=== PATIENT | male | born 1975 | race Caucasian/White ===

== ENCOUNTER 2020-11-15 10:26 | Outpatient (RCR) | payer OTHER, SELFPAY | END 2021-01-28 23:59 | LOC: IMMUN 10:26 | PROVIDERS: Visit Provider Family Medicine | DX: Z23 Encounter for immunization (principal) | CPT/HCPCS: 0001A; 0002A; 91300 ==

== ENCOUNTER → 2021-04-08 10:13 | Outpatient (CLI) | payer OTHER, SELFPAY ==
[2021-04-08 08:29] VITALS: BMI 34.8
[2021-04-08 12:09] LABS: Absolute Lymphocyte Count 2.12 X10^3/uL (0.83-4.51); Absolute Neutrophil Count 3.6 X10^3/uL (2.0-7.7); Basophil# 0.04 X10^3/uL; Basophil% 0.6 % (0-1); Eosinophil# 0.25 X10^3/uL; Eosinophils% 3.8 % (0-5); Hematocrit 45.6 % (40-54); Hemoglobin 15.3 g/dL (13.0-16.5); Lymphocyte # 2.12 X10^3/ul (0.83-4.51); Lymphocyte % 32.5 % (19-41); Mean Corp Hgb Conc 33.6 g/dL (32-36); Mean Corpuscular Hgb 28.9 pg (27.0-32.0); Mean Platelet Vol. 12.1 fl (6.2-12.0); Monocyte# 0.52 X10^3/uL; NRBC Flagged by Analyzer 0 % (0-5); Neutrophil # 3.57 X10^3/uL (2.7-7.7); Neutrophil % 54.8 % (47-70); POSITIVE COUNT YES; RBC Distribution Width CV 12.7 % (11.6-14.6); RBC Distribution Width SD 39.7 fl (35.1-43.9); White Blood Count 6.5 K/mm3 (4.4-11.0)
[2021-04-08 12:13] LABS: Vitamin D,25 Hydroxy 26.7 ng/mL
[2021-04-08 12:17] LABS: Hemoglobin A1c 5.3 % (3.8-5.6)
[2021-04-08 12:26] LABS: ALB/GLOB Ratio 1.1 RATIO (0.9-2.4); AST(SGOT) 25 U/L (15-37); Alanine Aminotransfer ALT/SGPT 62 U/L (16-61); Albumin, Serum 3.9 g/dL (3.2-5.0); Alkaline Phosphatase 73 U/L (45-117); Anion Gap 5 (5-15); BUN 10 mg/dL (7-18); BUN/Creat Ratio 10.4 RATIO (10-20); Calcium,Total 8.4 mg/dL (8.5-10.1); Chloride 109 mmol/L (98-107); Cholesterol 204 mg/dL (200); Creatinine, Serum 0.96 mg/dL (0.70-1.30); EST Glomerular Filtration Rate 90 mL/min (>60); Est Glom Filt Rate - Afr Amer 109 mL/min (>60); Globulin 3.4 g/dL (2.2-4.2); Glucose 89 mg/dL (74-106); High Density Lipoprotein 26 mg/dL; PSA,Total - Annual Screen 0.41 ng/mL (0.00-4.00); Potassium 4.1 mmol/L (3.5-5.1); Protein, Total 7.3 g/dL (6.4-8.2); Sodium Level 140 mmol/L (136-145); Thyroid Stim Hormone (TSH) 3.95 uIU/mL (0.358-3.74); Triglycerides 353 mg/dL; Very Low Density Lipoprotein 71 mg/dL (5-40)
[2021-04-08 12:53] LABS: Differential Indicated SCAN CRITERIA MET
[2021-04-08 12:54] LABS: Platelet Estimate ADEQUATE (ADEQ)
[2021-04-08 13:43] LABS: Free T3 3.1 pg/mL (2.18-3.98); T4 Free Direct 0.96 ng/dL (0.76-1.46)
[2021-04-09 16:08] LABS: Thyroid Peroxidase AB 450 IU/mL (0-34)
[2021-04-09 20:04] LABS: Thyroglobulin Antibody 4.6 IU/mL (0.0-0.9)
== END ==
PROVIDERS: PCP Internal Medicine; Referring Provider Internal Medicine; Visit Provider Internal Medicine
DX: R79.89 Other specified abnormal findings of blood chemistry (principal); Z12.5 Encounter for screening for malignant neoplasm of prostate; Z13.1 Encounter for screening for diabetes mellitus; Z13.220 Encounter for screening for lipoid disorders
CPT/HCPCS: 36415; 80053; 80061; 82306; 83036; 84153; 84439; 84443; 84481; 85025; 86376; 86800; G0103

== ENCOUNTER → 2021-04-08 13:26 | Outpatient (CLI) | payer OTHER, SELFPAY ==
[2021-04-08 08:29] VITALS: BMI 34.8
--- NOTE | 2021-04-08 13:28 | VDLE_ITS ---
Reason For Study: Swelling Procedure LEFT This is a venous duplex using B-mode, color GSV is normal. flow and spectral Doppler. CFV is compressible, spontaneous, phasic, Exam performed in department. competent, and demonstrates normal A preliminary report was called and/or faxed augmentation. to Tamie. FV is compressible, spontaneous, phasic, competent and demonstrates normal augmentation. POP V is compressible, spontaneous, phasic, competent and demonstrates normal augmentation. T/P Trunk is compressible. PTV is compressible. LT PerV is compressible. VL/Venous Duplex US, Unilateral Interpretation Summary There is no evidence of left lower extremity deep vein thrombosis. Left great s aphenous vein appears patent and compressible segmentally. Ordering Physician: Serenity Willett Referring Physician: Serenity Willett Performed By: Daina Rai RVT
== END ==
PROVIDERS: PCP Internal Medicine; Referring Provider Internal Medicine; Visit Provider Internal Medicine
DX: M79.89 Other specified soft tissue disorders (principal)
CPT/HCPCS: 93971

== ENCOUNTER → 2021-04-16 | Outpatient (CLI) | payer OTHER, SELFPAY | END | disposition home or self-care (01) | LOC: LABSPEC 15:21 | PROVIDERS: PCP Internal Medicine; Referring Provider Internal Medicine; Visit Provider Internal Medicine | DX: R53.83 Other fatigue (principal); Z20.822 Contact with and (suspected) exposure to COVID-19 | CPT/HCPCS: 87635; U0005; U0003 ==

== ENCOUNTER 2021-10-22 09:13 | Outpatient (CLI) | payer OTHER, SELFPAY ==
[2021-10-22 11:15] LABS: Cholesterol 216 mg/dL (200); Free T3 3.1 pg/mL (2.18-3.98); High Density Lipoprotein 26 mg/dL; T4 Free Direct 0.92 ng/dL (0.76-1.46); Thyroid Stim Hormone (TSH) 5.41 uIU/mL (0.358-3.74); Triglycerides 372 mg/dL; Very Low Density Lipoprotein 74 mg/dL (5-40)
== END 2021-10-22 23:59 | disposition home or self-care (01) ==
LOC: BIMLAB 09:14
PROVIDERS: PCP Internal Medicine; Referring Provider Internal Medicine; Visit Provider Internal Medicine
DX: R79.89 Other specified abnormal findings of blood chemistry (principal); R53.83 Other fatigue; E78.2 Mixed hyperlipidemia
CPT/HCPCS: 36415; 80061; 84439; 84443; 84481

== ENCOUNTER → 2021-12-24 | Outpatient (CLI) | payer OTHER, SELFPAY ==
[2021-12-24 12:51] LABS: Free T3 3.1 pg/mL (2.18-3.98); T4 Free Direct 1.03 ng/dL (0.76-1.46); Thyroid Stim Hormone (TSH) 3.35 uIU/mL (0.358-3.74)
== END | disposition home or self-care (01) ==
LOC: BIMLAB 11:12
PROVIDERS: PCP Internal Medicine; Referring Provider Internal Medicine; Visit Provider Internal Medicine
DX: E03.9 Hypothyroidism, unspecified (principal)
CPT/HCPCS: 36415; 84439; 84443; 84481

== ENCOUNTER → 2022-05-13 | Outpatient (CLI) | payer OTHER, SELFPAY ==
[2022-05-13 12:51] LABS: Absolute Lymphocyte Count 2.41 X10^3/uL (0.83-4.51); Absolute Neutrophil Count 3.3 X10^3/uL (2.0-7.7); Basophil# 0.06 X10^3/uL; Basophil% 0.9 % (0-1); Eosinophil# 0.22 X10^3/uL; Eosinophils% 3.3 % (0-5); Hematocrit 44.6 % (40-54); Hemoglobin 14.8 g/dL (13.0-16.5); Lymphocyte # 2.41 X10^3/ul (0.83-4.51); Lymphocyte % 36.6 % (19-41); Mean Corp Hgb Conc 33.2 g/dL (32-36); Mean Corpuscular Hgb 29.1 pg (27.0-32.0); Mean Corpuscular Volume 87.8 fL (80-94); Mean Platelet Vol. 12.6 fl (6.2-12.0); Monocyte% 9.1 % (0-10); NRBC Flagged by Analyzer 0 % (0-5); Neutrophil # 3.26 X10^3/uL (2.7-7.7); Neutrophil % 49.5 % (47-70); Platelet Count 100 K/mm3 (150-450); RBC Distribution Width CV 12.6 % (11.6-14.6); RBC Distribution Width SD 40.3 fl (35.1-43.9); Red Blood Count 5.08 M/mm3 (4.6-6.2); White Blood Count 6.6 K/mm3 (4.4-11.0)
[2022-05-13 13:06] LABS: AST(SGOT) 26 U/L (15-37); Alanine Aminotransfer ALT/SGPT 50 U/L (16-61); Albumin, Serum 3.6 g/dL (3.2-5.0); Alkaline Phosphatase 70 U/L (45-117); Anion Gap 7 (5-15); BUN 10 mg/dL (7-18); BUN/Creat Ratio 9.2 RATIO (10-20); Calcium,Total 8.8 mg/dL (8.5-10.1); Chloride 109 mmol/L (98-107); Cholesterol 174 mg/dL (200); Creatinine, Serum 1.09 mg/dL (0.70-1.30); EST Glomerular Filtration Rate 78 mL/min (>60); Est Glom Filt Rate - Afr Amer 94 mL/min (>60); Free T3 2.9 pg/mL (2.18-3.98); Globulin 3.5 g/dL (2.2-4.2); Glucose 100 mg/dL (74-106); High Density Lipoprotein 24 mg/dL; PSA,Total - Annual Screen 0.46 ng/mL (0.00-4.00); Potassium 3.9 mmol/L (3.5-5.1); Protein, Total 7.1 g/dL (6.4-8.2); Sodium Level 141 mmol/L (136-145); T4 Free Direct 1.06 ng/dL (0.76-1.46); Thyroid Stim Hormone (TSH) 4.26 uIU/mL (0.358-3.74); Triglycerides 331 mg/dL; Very Low Density Lipoprotein 66 mg/dL (5-40)
== END | disposition home or self-care (01) ==
LOC: BIMLAB 08:49
PROVIDERS: PCP Internal Medicine; Referring Provider Internal Medicine; Visit Provider Internal Medicine
DX: E03.9 Hypothyroidism, unspecified (principal); F41.9 Anxiety disorder, unspecified; F32.A Depression, unspecified; E78.2 Mixed hyperlipidemia
CPT/HCPCS: 36415; 80053; 80061; 84153; 84439; 84443; 84481; 85025; G0103

== ENCOUNTER → 2022-12-23 | Outpatient (CLI) | payer MEDICAID, SELFPAY ==
[2022-12-23 12:47] LABS: Free T3 2.8 pg/mL (2.18-3.98); Thyroid Stim Hormone (TSH) 6.38 uIU/mL (0.358-3.74)
== END | disposition home or self-care (01) ==
LOC: BIMLAB 09:12
PROVIDERS: PCP Internal Medicine; Referring Provider Internal Medicine; Visit Provider Internal Medicine
DX: E03.9 Hypothyroidism, unspecified (principal)
CPT/HCPCS: 36415; 84439; 84443; 84481

== ENCOUNTER → 2024-02-28 | Outpatient (CLI) | payer MEDICAID, SELFPAY ==
[2024-02-28 12:57] LABS: Vitamin D,25 Hydroxy 21.7 ng/mL
[2024-02-28 13:08] LABS: AST(SGOT) 28 U/L (15-37); Alanine Aminotransfer ALT/SGPT 58 U/L (16-61); Albumin, Serum 3.7 g/dL (3.2-5.0); Alkaline Phosphatase 75 U/L (45-117); Anion Gap 5 (5-15); BUN 9 mg/dL (7-18); BUN/Creat Ratio 7.3 RATIO (10-20); Chloride 109 mmol/L (98-107); Cholesterol 224 mg/dL (200); Creatinine, Serum 1.23 mg/dL (0.70-1.30); EST Glomerular Filtration Rate 67 mL/min (>60); Est Glom Filt Rate - Afr Amer 81 mL/min (>60); Free T3 2.8 pg/mL (2.18-3.98); Globulin 3.7 g/dL (2.2-4.2); Glucose 97 mg/dL (74-106); High Density Lipoprotein 27 mg/dL; PSA,Total - Annual Screen 0.47 ng/mL (0.00-4.00); Potassium 4.2 mmol/L (3.5-5.1); Protein, Total 7.4 g/dL (6.4-8.2); Sodium Level 140 mmol/L (136-145); T4 Free Direct 0.96 ng/dL (0.76-1.46); Thyroid Stim Hormone (TSH) 5.38 uIU/mL (0.358-3.74); Triglycerides 393 mg/dL; Very Low Density Lipoprotein 79 mg/dL (5-40)
[2024-02-28 16:42] LABS: Absolute Neutrophil Count 4.8 X10^3/uL (2.0-7.7); Basophil# 0.08 X10^3/uL; Basophil% 0.9 % (0-1); Eosinophil# 0.23 X10^3/uL; Eosinophils% 2.6 % (0-5); Hematocrit 40.2 % (40-54); Hemoglobin 13.8 g/dL (13.0-16.5); Lymphocyte % 34.9 % (19-41); Mean Corp Hgb Conc 34.3 g/dL (32-36); Mean Corpuscular Hgb 29.1 pg (27.0-32.0); Mean Corpuscular Volume 84.6 fL (80-94); Mean Platelet Vol. 10.8 fl (6.2-12.0); Monocyte# 0.65 X10^3/uL; Monocyte% 7.3 % (0-10); NRBC Flagged by Analyzer 0 % (0-5); Neutrophil # 4.78 X10^3/uL (2.7-7.7); Platelet Count 201 K/mm3 (150-450); RBC Distribution Width CV 12.6 % (11.6-14.6); RBC Distribution Width SD 38.5 fl (35.1-43.9); Red Blood Count 4.75 M/mm3 (4.6-6.2); White Blood Count 8.9 K/mm3 (4.4-11.0)
== END | disposition home or self-care (01) ==
LOC: BIMLAB 09:09
PROVIDERS: PCP Internal Medicine; Referring Provider Internal Medicine; Visit Provider Internal Medicine
DX: E03.9 Hypothyroidism, unspecified (principal); E78.2 Mixed hyperlipidemia; F41.9 Anxiety disorder, unspecified; F32.A Depression, unspecified; E55.9 Vitamin D deficiency, unspecified; Z12.5 Encounter for screening for malignant neoplasm of prostate; Z13.220 Encounter for screening for lipoid disorders
CPT/HCPCS: 84153; 36415; 80053; 80061; 82306; 84439; 84443; 84481; 85025; G0103

== ENCOUNTER → 2024-03-01 | Outpatient (CLI) | payer MEDICAID, SELFPAY | END | disposition home or self-care (01) | PROVIDERS: PCP Internal Medicine; Referring Provider Internal Medicine; Visit Provider Internal Medicine | DX: E78.6 Lipoprotein deficiency (principal) | CPT/HCPCS: 36415 ==

== ENCOUNTER 2024-05-18 07:14 | Day surgery (SDC) | payer MEDICAID, SELFPAY ==
--- NOTE | 2024-05-18 07:29 | PCM.PRE.AN2 ---
ASA Classification* ASA Classification ASA Classification: 3 Assessment & Plan Anesthesia* Anesthesia Assessment Anesthesia Assessment: Discussed sedation and/or anesthesia options, risks, benefits, and alternatives with patient/parents/legal guardian/POA. Questions invited. The patient/parents/legal guardian/POA seems to understand and agrees to proceed with anesthesia plan. Reviewed the physical assessment, medical history, allergy history and patient home medications list prior to surgery/procedure/anesthetic and documented any changes. Performed airway and anesthesia risk assessments. Anesthesia Type Anesthesia Type: MAC (see written pre anesthesia record for full assessment) Anesthesia Focused Assessment* Airway Assessment Mouth opens: >3 cm Mallampati Score: III Focused Labs Anesthesia Preop lab: CBC WBC 8.9 K/mm3 (4.4-11.0) 02/28/24 15:55 RBC 4.75 M/mm3 (4.6-6.2) 02/28/24 15:55 Hgb 13.8 g/dL (13.0-16.5) 02/28/24 15:55 Hct 40.2 % (40-54) 02/28/24 15:55 Plt Count 201 K/mm3 (150-450) 02/28/24 15:55 CHEMISTRY Potassium 4.2 mmol/L (3.5-5.1) 02/28/24 09:10 Sodium 140 mmol/L (136-145) 02/28/24 09:10 BUN 9 mg/dL (7-18) 02/28/24 09:10 Creatinine 1.23 mg/dL (0.70-1.30) 02/28/24 09:10 Glucose 97 mg/dL (74-106) 02/28/24 09:10 TSH 5.38 uIU/mL (0.358-3.74) H 02/28/24 09:10 COAG Pre-Assessment Diagnosis/Proposed Procedure Planned Operative Procedure(s): COLONOSCOPY Anesthesia History 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 When Was Last Pacemaker Check QUESTION #4 FULL TEXT: You/Your Family Experience fever (hyperthermia) with Anesthesia Last Oral Intake Last Oral intake: Last Oral Intake NPO since Meds taken in AM with sips of water? Meds patient instructed to take am of surgery PONV PONV - denture model maker: PONV - denture model maker Female No 05/15/24 15:17 HX of Motion Sickness No 05/15/24 15:17 HX of N/V After Surgery No 05/15/24 15:17 Non-Smoker Yes 05/15/24 15:17 Duration of Surgery greater No 05/15/24 15:17 than 60 minutes Number of Risk Factors 1 05/15/24 15:17 PONV Score Low Risk 05/15/24 15:17 Height & Weight Height & Weight: Anesthesia: Height & Weight Height 6 ft 4 in 03/24/24 09:05 Respiratory Assessment Respiratory Assessment - denture model maker: Respiratory Tract Infection Hx - denture model maker Hx Respiratory Tract Infection No 05/15/24 15:17 STOP Sleep Apnea STOP Sleep Apnea - denture model maker: STOP Sleep Apnea - denture model maker Hx Hypertension No 05/15/24 15:17 Hx Sleep Apnea No 05/15/24 15:17 CPAP BIPAP Do you snore loudly (louder Yes 05/15/24 15:17 than talking or can be heard Do you often feel tired/ No 05/15/24 15:17 fatigued/ sleepy during daytime? Has anyone observed you stop No 05/15/24 15:17 breathing during sleep? STOP Results Negative 05/15/24 15:17 QUESTION #5 FULL TEXT : Do you snore loudly (louder than talking or can be heard through closed doors)? 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 Specify any problems Hx of Preganancy in last 3 N/A 05/15/24 15:17 Months Nurse Filling Out Transfusion [facility] 05/15/24 15:17 & Questions: Date: 05/15/24 05/15/24 15:17 Time: 15:25 05/15/24 15:17 Patient unable to answer at this time (ie. confused, unrespo /Reproduction History /Reproductive History - denture model maker: /Reproductive Hx- denture model maker Hx Now Gestational Age (in weeks): EDC: Hx Hx Para Hx Section SAB Active Medications Active Medications: Current Medications Generic Name Dose Route Start Last Admin Trade Name Freq PRN Reason Stop Dose Admin Lactated Ringer's 1,000 mls @ 15 mls/hr 05/18/24 07:15 IV .Q48H ARACELI PFSH Medical History Wears glasses Thyroid disease High cholesterol History of IBS Non-smoker History of deviated nasal septum Hyperlipidemia Acute sinusitis, unspecified COVID Home Medications ?Medication ?Instructions ?Recorded ?Last Taken ?Type fluticasone propionate 50 1 spray intranasal DAILY 04/08/21 Unknown History mcg/actuation nasal spray,suspension cetirizine 10 mg capsule (Zyrtec) 10 mg PO DAILY 12/23/22 Unknown History atorvastatin 20 mg tablet 20 mg PO DAILY #90 tabs 03/01/24 Unknown Rx levothyroxine 88 mcg tablet 88 mcg PO DAILY #90 tabs 03/01/24 Unknown Rx Allergy/AdvReac Type Severity Reaction Status Date / Time Environmental Allergies: Allergy Mild Other Verified 05/15/24 14:26 Uncoded Family History Father Hypertension Parkinson disease Mother Hypertension Thyroid disorder Sister Seizures Grandfather Thyroid disorder Autoimmune disorder Surgical History History of myringotomy History of tonsillectomy Social History household members: spouse current occupational status: employed current occupation: [employer] Smoking Status: Never smoker alcohol intake: never substance use type: does not use Review of Systems (Anesthesia) ROS Narrative System reviewed and no additional complaints, except as documented.
[2024-05-18 07:30] VITALS: BP 126/90; PULSE 63; RESP 16; TEMP 36.1; O2SAT 100; BMI 34.8
--- OUTSIDE RECORDS SUMMARY | 2024-05-18 07:34 | XMS RPT_ITS | CCD ---
Author Organization [facility] Partnership [facility] Care Team Providers Care Diet Supervisor Name Role Phone Unavailable Primary Care Provider Unavailabl e Medications Current Medications Medication Drug Class(es) Dates Sig (Normalized) Sig (Original) acetaminophen 325 mg / HYDROcodone bitartrate 5 mg oral tablet (2 sources) Opioid Agonist Start: 10-04-2020 End: 10-07-2020 take 1 tablet by mouth every eight hours as needed for pain HYDROcodone-aceta minophen (NORCO) 5-325 MG per tablet Indications: Injury of left shoulder, initial encounter , Acute pain of left shoulder Take 1 tablet by mouth every 8 hours as needed for Pain for up to 3 days. 9 tablet 0 10/04/2020 10/07/2020 Active Start: 10-04-2020 End: 10-04-2020 HYDROcodone-acetaminophen (N ORCO) 5-325 MG per tablet 1 tablet cetirizine hydrochloride 10 mg oral tablet (2 sources) Histamine-1 Receptor Antagonist take 1 tablet by mouth once daily cetirizine (ZYRTEC) 10 MG tablet Take 10 mg by mouth daily 0 Active lidocaine 0.04 mg/mg medicated patch (2 sources) Antiarrhythmic, Amide Local Anesthetic Start: 9 lidocaine 4 % external patch 1 patch Start: 07-06-2019 End: 07-16-2019 lidocaine (LIDODERM) 5 % Zack ce 1 patch onto the skin daily for 10 days 12 hours on, 12 hours off. 10 patch 0 07/06/2019 07/16/2019 Active naproxen 500 mg oral tablet (3 sources) Nonsteroidal Anti-inflammatory Drug Start: 07-06-2019 End: 07-16-2019 take 1 tablet by mouth twice daily at mealtime naproxen (NAPROSYN) 500 MG tablet Take 1 tablet by mouth 2 times daily (with meals) for 10 days 20 tablet 0 07/06/2019 Active Completed/Discontinued Medications Medication Drug Class(es) Dates Sig (Normalized) Sig (Original) cyclobenzaprine hydrochloride 10 mg oral tablet (2 sources) Muscle Relaxant Start: 07-06-2019 End: 07-16-2019 cyclobenzaprine (FLEXERIL) tablet 10 mg ibuprofen 600 mg oral tablet (1 source) Nonsteroidal Anti-inflammatory Drug Start: 10-04-2020 End: 10-04-2020 ibuprofen (ADVIL;MOTRIN) tablet 600 mg Problems Active Problems Problem Classification Problem Date Documented Da te Episodic/Chronic External cause codes: Fall (1 source) Fall; Translations: [Fall, initial encounter] Other injuries and conditions due to external causes (1 source) Unspecified injury of left shoulder and upper arm, initial encounter; Translations: [Injury of left shoulder, initial encounter] Episodic Other non-traumatic joint disorders (1 source) Shoulder pain; Translations: [Acute pain of left shoulder] Episodic Past or Other Problems Problem Classification Problem Date Documented Da te Episodic/Chronic Sprains and strains (2 sources) Low back strain; Translations: [Strain of flexor muscle of hip] Episodic Results Test Name Value Interpretation Reference Range Facil ity CR Humerus 2+ Views Lefton 0 10-04-2020 CR Humerus 2+ Views Left Patient Name: NICOLÁS BARNEY Diagnostic Radiology ACCESSION EXAM DATE/TIME PROCEDURE ORDERING PROVIDER [id number] 10/04/2020 11:10 EST CR Humerus 2+ Views Left MINA GTZ DANIEL M CPT code 09698 Reason For Exam (CR Humerus 2+ Views Left) pain, fall Report Left humerus: 10/04/2020. Clinical Information: Pain. Findings: 2 views of the left humerus from the shoulder to the elbow reveal the bones to be well mineralized. There is no evidence of fracture or dislocation. No periosteal reaction, lytic or sclerotic foci are identified. Impression: No acute process. Report Dictated on Final Dictating Physician: MD BOYLE RISA Signed Date and Time: 10/04/2020 12:03 pm Signed by: MD BOYLE RISA Transcribed Date and Time: 10/04/2020 12:04 Normal [facility] CR Shoulder 2+ Views Lefton 10-04-2020 CR Shoulder 2+ Views Left Patient Name: NICOLÁS BARNEY Diagnostic Radiology ACCESSION EXAM DATE/TIME PROCEDURE ORDERING PROVIDER [id number] 10/04/2020 11:10 EST CR Shoulder 2+ Views MINA GTZ, HAYES Bai Left CPT code 16417 Reason For Exam (CR Shoulder 2+ Views Left) pain, fall Report Left shoulder: 10/04/2020. Clinical Information: Pain. Findings: 3 views of the left shoulder reveal the bones to be well mineralized. There is no evidence of fracture or dislocation. The glenohumeral joint and subacromial spaces are maintained. Impression: No acute process. Report Dictated on Final Dictating Physician: MD BOYLE RISA Signed Date and Time: 10/04/2020 11:14 am Signed by: MD BOYLE RISA Transcribed Date and Time: 10/04/2020 11:15 Normal [facility] ED Provider Noteon ED Provider Note [facility] ED eMERGENCY dEPARTMENT eNCOUnter Pt Name: Nicolás Barney Birthdate 1975 Date of evaluation: 10/04/2020 Provider: ADAM Sloan CNP I have evaluated this patient on my own, per my scope of practice with an attending physician available for consultation. CHIEF COMPLAINT Chief Complaint Patient presents with ? Shoulder Pain left HISTORY OF PRESENT ILLNESS (Location/Symptom, Timing/Onset,Context/S etting, Quality, Duration, Modifying Factors, Severity) Note limiting factors. HPI Nicolás Barney is a 44 y.o. male who presents to the emergency department with a fall on his left shoulder. Patient states he slipped on the ice was worried about landing on his backpack that his laptop in it, he landed directly on his left shoulder. Complains of pain with any attempted range of motion of left shoulder. Denies head injury or loss of consciousness. Denies any neck or back pain. He has not taken anything for pain. States constant ache that is worse with any movement. Nursing Notes were reviewed. REVIEW OF SYSTEMS (2+ for4; 10+ for level 5) Review of Systems Constitutional: Negative for activity change, appetite change, chills and fever. HENT: Negative for congestion, ear discharge, ear pain, hearing loss, postnasal drip, rhinorrhea and sore throat. Eyes: Negative for discharge and redness. Respiratory: Negative for chest tightness and shortness of breath. Cardiovascular: Negative for chest pain. Gastrointestinal: Negative for abdominal pain, diarrhea, nausea and vomiting. Genitourinary: Negative for dysuria. Musculoskeletal: Positive for arthralgias and myalgias. Negative for gait problem, joint swelling and neck stiffness. Skin: Negative for color change. Neurological: Negative for dizziness, light-headedness and headaches. Psychiatric/Behavioral : Negative for agitation and confusion. All other systems reviewed and are negative. PAST MEDICAL HISTORY Past Medical History: Diagnosis Date ? Asthma SURGICALHISTORY Past Surgical History: Procedure Laterality Date ? NASAL SEPTUM SURGERY CURRENT MEDICATIONS Previous Medications CETIRIZINE (ZYRTEC) 10 MG TABLET Take 10 mg by mouth daily NAPROXEN (NAPROSYN) 500 MG TABLET Take 1 tablet by mouth 2 times daily (with meals) for 10 days Patient has no known allergies. FAMILY HISTORY History reviewed. No pertinent family history. SOCIAL HISTORY Social History Socioeconomic History ? Marital status: Spouse name: None ? Number of children: None ? Years of education: None ? Highest education level: None Occupational History ? None Social Needs ? Financial resource strain: None ? Food insecurity Worry: None Inability: None ? Transportation needs Medical: None Non-medical: None Tobacco Use ? Smoking status: Never Smoker ? Smokeless tobacco: Never Used Substance and Sexual Activity ? Alcohol use: Never Frequency: Never ? Drug use: Never ? Sexual activity: Never Lifestyle ? Physical activity Days per week: None Minutes per session: None ? Stress: None Relationships ? Social connections Talks on phone: None Gets together: None Attends tenriism service: None Active member of club or organization: None Attends meetings of clubs or organizations: None Relationship status: None ? Intimate partner violence Fear of current or ex partner: None Emotionally abused: None Physically abused: None Forced sexual activity: None Other Topics Concern ? None Social History Narrative ? None SCREENINGS @FLOW([id number])@ PHYSICAL EXAM (5+ for level 4, 8+ for level 5) ED Triage Vitals [10/04/20 1023] BP Temp Temp Source Pulse Resp SpO2 Height Weight (!) 142/95 97.6 ?F (36.4 ?C) Temporal 61 16 95 % -- 288 lb (130.6 kg) Physical Exam Vitals signs and nursing note reviewed. Constitutional: General: He is not in acute distress. Appearance: Normal appearance. He is normal weight. He is not toxic-appearing. HENT: Head: Normocephalic and atraumatic. Right Ear: External ear normal. Left Ear: External ear normal. Eyes: Conjunctiva/sclera: Conjunctivae normal. Pupils: Pupils are equal, round, and reactive to light. Neck: Musculoskeletal: Normal range of motion and neck supple. No neck rigidity or muscular tenderness. Pulmonary: Effort: Pulmonary effort is normal. No respiratory distress. Breath sounds: Normal breath sounds. No stridor. No wheezing. Chest: Chest wall: No tenderness. Musculoskeletal: Comments: There is tenderness to the proximal humerus on the left, the clavicle is nontender. There is pain with attempted range of motion of obvious dislocation is noted there is tenderness to the distal humerus. Radial pulses 2+. No pain with range of motion of the left elbow. Skin: General: Skin is warm and dry. Capillary Refill: Capillary refill takes less than 2 seconds. Coloration: Skin is not jaundiced or pale. Findings: No bruising. Neurological: General: No focal deficit present. Mental Status: He is alert and oriented to person, place, and time. Mental status is at baseline. Psychiatric: Mood and Affect: Mood normal. DIAGNOSTIC RESULTS EKG (Per Emergency Physician): Not performed. RADIOLOGY (Per EmergencyPhysician): Interpretation per the Radiologist below, if available at the time of this note: Xr Shoulder Left 2 Vw Result Date: 10/04/2020 Patient Name: NICOLÁS BARNEY [facility]#: [id number] Diagnostic Radiology ACCESSION EXAM DATE/TIME PROCEDURE ORDERING PROVIDER [id number] 10/04/2020 11:10 EST CR Shoulder 2+ Views MINA GTZ DANIEL M Left CPT code 52807 Reason For Exam (CR Shoulder 2+ Views Left) pain, fall Report Left shoulder: 10/04/2020. Clinical Information: Pain. Findings: 3 views of the left shoulder reveal the bones to be well mineralized. There is no evidence of fracture or dislocation. The glenohumeral joint and subacromial spaces are maintained. Impression: No acute process. Report Dictated on --- Final --- Dictating Physician: MD BOYLE RISA Signed Date and Time: 10/04/2020 11:14 am Signed by: MD BOYLE RISA Transcribed Date and Time: 10/04/2020 11:15 : Labs Reviewed - No data to display All other labs were within normal range or not returned as of this dictation. EMERGENCY DEPARTMENT COURSE and DIFFERENTIALDIAGNOSIS/ MDM: Vitals: Vitals: 10/04/20 1023 BP: (!) 142/95 Pulse: 61 Resp: 16 Temp: 97.6 ?F (36.4 ?C) TempSrc: Temporal SpO2: 95% Weight: 130.6 kg (288 lb) Medications HYDROcodone-acetaminop hen (NORCO) 5-325 MG per tablet 1 tablet (1 tablet Oral Given 10/04/20 1033) ibuprofen (ADVIL;MOTRIN) tablet 600 mg (600 mg Oral Given 10/04/20 1034) MDM. Patient presents with injury to left shoulder, he fell directly on it x-ray show no evidence of dislocation or fracture. He has a lot of pain with extension of the arm and pain when he tries to resist with the left arm. Not the typical injury that would expect for a labrum tear or a rotator cuff injury, I advised him to see how he does over the next 3-[address] referral for orthopedics if he is not improved by Wednesday I advised him to follow-up with orthopedics and given exercises for home he was encouraged to range of motion exercises and he will be discharged. I have evaluated this patient on my own, per my scope of practice with an attending physician available for consultation. CONSULTS: None PROCEDURES: Unless otherwise noted below, none Procedures FINAL IMPRESSION 1. Injury of left shoulder, initial encounter 2. Acute pain of left shoulder DISPOSITION/PLAN DISPOSITION Decision To Discharge 10/04/2020 11:29:12 AM PATIENT REFERRED TO: No follow-up provider specified. DISCHARGE MEDICATIONS: New Prescriptions HYDROCODONE-ACETAMINOP HEN (NORCO) 5-325 MG PER TABLET Take 1 tablet by mouth every 8 hours as needed for Pain for up to 3 days. (Please note: Portions of this note were completed with a voice recognition program. Efforts were made to edit thedictations but occasionally words and phrases are mis-transcribed.) Form [id number] ADAM Sloan CNP (electronically signed) Emergency Medicine Provider ADAM Sloan CNP 10/04/20 1132 Normal [facility] XR HUMERUS LEFT (MIN 2 VIEWS )on 10-04-2020 Patient Name: NICOLÁS VALENTINO Diagnostic Radiology ACCESSION EXAM DATE/TIME PROCEDURE ORDERING PROVIDER [id number] 10/04/2020 11:10 EST CR Humerus 2+ Views Left MINA GTZ DANIEL M CPT code 76086 Reason For Exam (CR Humerus 2+ Views Left) pain, fall Report Left humerus: 10/04/2020. Clinical Information: Pain. Findings: 2 views of the left humerus from the shoulder to the elbow reveal the bones to be well mineralized. There is no evidence of fracture or dislocation. No periosteal reaction, lytic or sclerotic foci are identified. Impression: No acute process. Report Dictated on --- Final --- Dictating Physician: MD BOYLE RISA Signed Date and Time: 10/04/2020 12:03 pm Signed by: MD BOYLE RISA Transcribed Date and Time: 10/04/2020 12:04 [facility] Work Phone: [facility] Incoming Radiology Results From [facility] - 10/04/2020 12:04 PM EST Patient Name: NICOLÁS BARNEY Diagnostic Radiology ACCESSION EXAM DATE/TIME PROCEDURE ORDERING PROVIDER [id number] 10/04/2020 11:10 EST CR Humerus 2+ Views Left MINA GTZ DANIEL M CPT code 06234 Reason For Exam (CR Humerus 2+ Views Left) pain, fall Report Left humerus: 10/04/2020. Clinical Information: Pain. Findings: 2 views of the left humerus from the shoulder to the elbow reveal the bones to be well mineralized. There is no evidence of fracture or dislocation. No periosteal reaction, lytic or sclerotic foci are identified. Impression: No acute process. Report Dictated on --- Final --- Dictating Physician: MD BOYLE RISA Signed Date and Time: 10/04/2020 12:03 pm Signed by: MD BOYLE RISA Transcribed Date and Time: 10/04/2020 12:04 [facility] Work Phone: XR Shoulder Left 2 VWon 09-23 Patient Name: NICOLÁS VALENTINO Diagnostic Radiology ACCESSION EXAM DATE/TIME PROCEDURE ORDERING PROVIDER [id number] 10/04/2020 11:10 EST CR Shoulder 2+ Views ULISSESMINA SHARMAHAYES Left CPT code 53811 Reason For Exam (CR Shoulder 2+ Views Left) pain, fall Report Left shoulder: 10/04/2020. Clinical Information: Pain. Findings: 3 views of the left shoulder reveal the bones to be well mineralized. There is no evidence of fracture or dislocation. The glenohumeral joint and subacromial spaces are maintained. Impression: No acute process. Report Dictated on --- Final --- Dictating Physician: MD BOYLE RISA Signed Date and Time: 10/04/2020 11:14 am Signed by: MD BOYLE RISA Transcribed Date and Time: 10/04/2020 11:15 [facility] Work Phone: [facility] Incoming Radiology Results From [facility] 10/04/2020 11:15 AM EST Patient Name: NICOLÁS BARNEY Diagnostic Radiology ACCESSION EXAM DATE/TIME PROCEDURE ORDERING PROVIDER [id number] 10/04/2020 11:10 EST CR Shoulder 2+ Views ULISSESMINA SHARMAHAYES Left CPT code 71908 Reason For Exam (CR Shoulder 2+ Views Left) pain, fall Report Left shoulder: 10/04/2020. Clinical Information: Pain. Findings: 3 views of the left shoulder reveal the bones to be well mineralized. There is no evidence of fracture or dislocation. The glenohumeral joint and subacromial spaces are maintained. Impression: No acute process. Report Dictated on --- Final --- Dictating Physician: MD BOYLE RISA Signed Date and Time: 10/04/2020 11:14 am Signed by: MD TAMAR, YESSICA Transcribed Date and Time: 10/04/2020 11:15 [facility] Work Phone: XR HIP LEFT (2-3 VIEWS)on Patient Name: NICOLÁS VALENTINO ---Diagnostic Radiology--- Exam Date/Time 07/06/2019 18:46:07 EST Exam CR Hip w/ Pelvis 2 or 3 Views Left n Ordering Physician LIBERTY WYNN, MORENA Bunch Accession Number [id number] CPT4 Codes 64117 () Reason For Exam fall, pain Report SINGLE VIEW OF THE PELVIS AND TWO VIEWS OF THE LEFT HIP CLINICAL INDICATION: fall, pain TECHNIQUE: Single view of the pelvis and two views of the left hip. COMPARISON: None FINDINGS: Pelvis: SI joints and pubic symphysis appear intact. Bilateral hip joint spaces appear normal. Femoral head and femoral neck appear normal bilaterally. No acute fracture or dislocation seen. Left hip: Left hip joint space appears normal. Left femoral head and neck appear normal. No fracture or dislocation seen. IMPRESSION: 1. Negative. Report Dictated on --- Final --- Dictating Physician: MD STARR JOHN R Signed Date and Time: 07/06/2019 7:04 pm Signed by: MD STARR JOHN R Transcribed Date and Time: 07/06/2019 7:05 [facility] Incoming Radiology Results From [facility] - 07/06/2019 7:06 PM EST Patient Name: NICOLÁS BARNEY ---Diagnostic Radiology--- Exam Date/Time 07/06/2019 18:46:07 EST Exam CR Hip w/ Pelvis 2 or 3 Views Left n Ordering Physician LIBERTY WYNN, MORENA Bunch Accession Number [id number] CPT4 Codes 57000 () Reason For Exam fall, pain Report SINGLE VIEW OF THE PELVIS AND TWO VIEWS OF THE LEFT HIP CLINICAL INDICATION: fall, pain TECHNIQUE: Single view of the pelvis and two views of the left hip. COMPARISON: None FINDINGS: Pelvis: SI joints and pubic symphysis appear intact. Bilateral hip joint spaces appear normal. Femoral head and femoral neck appear normal bilaterally. No acute fracture or dislocation seen. Left hip: Left hip joint space appears normal. Left femoral head and neck appear normal. No fracture or dislocation seen. IMPRESSION: 1. Negative. Report Dictated on --- Final --- Dictating Physician: MD STARR JOHN R Signed Date and Time: 07/06/2019 7:04 pm Signed by: MD STARR JOHN R Transcribed Date and Time: 07/06/2019 7:05 [facility] [employer] XR LUMBAR SPINE (2-3 VIEWS)o n 07-06-2019 Patient Name: NICOLÁS VALENTINO ---Diagnostic Radiology--- Exam Date/Time 07/06/2019 18:46:07 EST Exam CR Spine Lumbosacral 2 or 3 Views Ordering Physician LIBERTY WYNN, MORENA Bunch Accession Number [id number] CPT4 Codes 66035 () Reason For Exam pain, fall Report LUMBAR SPINE 3 VIEWS CLINICAL INDICATION: pain, fall TECHNIQUE: Three views of the lumbar spine. COMPARISON: None FINDINGS: Vertebral bodies are normal in height and alignment. No fracture or subluxation seen. Facet joints appear normal. Discs are maintained. Normal SI joints. Minor endplate spurring upper endplate of L2 and upper endplate of L4. IMPRESSION: 1. No acute finding. Report Dictated on --- Final --- Dictating Physician: MD STARR JOHN R Signed Date and Time: 07/06/2019 7:01 pm Signed by: MD STARR JOHN R Transcribed Date and Time: 07/06/2019 7:02 [facility] Incoming Radiology Results From [facility] - 07/06/2019 7:02 PM EST Patient Name: NICOLÁS BARNEY ---Diagnostic Radiology--- Exam Date/Time 07/06/2019 18:46:07 EST Exam CR Spine Lumbosacral 2 or 3 Views Ordering Physician LIBERTY WYNN, MORENA Bunch Accession Number [id number] CPT4 Codes 04894 () Reason For Exam pain, fall Report LUMBAR SPINE 3 VIEWS CLINICAL INDICATION: pain, fall TECHNIQUE: Three views of the lumbar spine. COMPARISON: None FINDINGS: Vertebral bodies are normal in height and alignment. No fracture or subluxation seen. Facet joints appear normal. Discs are maintained. Normal SI joints. Minor endplate spurring upper endplate of L2 and upper endplate of L4. IMPRESSION: 1. No acute finding. Report Dictated on --- Final --- Dictating Physician: MD STARR JOHN R Signed Date and Time: 07/06/2019 7:01 pm Signed by: MD STARR JOHN R Transcribed Date and Time: 07/06/2019 7:02 [employer] [place] Vital Signs Date Time Vital Sign Value Performing Clinician Lolis keller 10-04-2020 11:54-0500 BP Diastolic 79 mm[Hg] [employer] Work Phone: 10-04-2020 11:54-0500 BP Systolic 117 mm[Hg] [employer] Work Phone: 10-04-2020 11:54-0500 Pulse (Heart Rate) 70 /min [employer] Work Phone: 10-04-2020 11:54-0500 Pulse Oximetry 95 % [facility] Phone: 10-04-2020 11:54-0500 Respiratory Rate 18 /min [employer] Work Phone: 10-04-2020 10:23-0500 Body Temperature 97.59 [degF] [employer] Work Phone: 10-04-2020 10:23-0500 Body weight 130.64 kg [employer] Phone: 07-06-2019 18:15-0500 BP Diastolic 96 mm[Hg] [employer] 07-06-2019 18:15-0500 BP Systolic 159 mm[Hg] [facility] 07-06-2019 18:15-0500 Pulse (Heart Rate) 82 /min [employer] 07-06-2019 18:15-0500 Pulse Oximetry 98 % [place], [place] 07-06-2019 18:15-0500 Respiratory Rate 18 /min [place], [place] Encounters Encounter Date Encounter Type Care Provider Facility Start: 10-04-2020 End: 10-04-2020 Emergency department patient visit [facility] ED Comment on above: Injury of left shoul opal, initial encounter (Primary Dx); Acute pain of left shoulder Start: 07-06-2019 End: 07-06-2019 Emergency department patient visit [facility] ED Comment on above: Fall, initial encoun ter (Primary Dx); Strain of lumbar region, initial encounter; Strain of left hip, initial encounter Procedures Date Procedure Procedure Detail Performing Clinician Start: 10-04-2020 Radex humerus minimu m 2 views Hayes Ulisses Work Phone: Start: 10-04-2020 Radex shoulder compl ete minimum 2 views Hayes Gtz Work Phone: Start: 07-06-2019 Radex hip unilateral with pelvis 2-3 views Morena Wynn Work Phone: Start: 07-06-2019 Radex spine lumbosac ral 2/3 views Morena Wynn Work Phone: Plan of Treatment Date Care Activity Detail Author Start: 04-23-2020 Influenza vaccination Flu vaccine (# 1) [employer] Work Phone: Start: 04-23-2019 Influenza vaccination Flu vaccine (# 1) [place], [place] Social History Date Type Detail Facility Start: 07-06-2019 End: 10-04-2020 Tobacco smoking status NHIS Never smoker [place], [place] Start: 07-06-2019 End: 10-04-2020 Alcohol intake Lifetime non-drinker (finding) [place], [place] Start: 07-06-2019 History SDOH Alcohol Frequency 1 [place], [place] Sex Assigned At Not on file [place], [place] Start: 10-04-2020 Tobacco use and exposure Never used [employer] Work Phone: Exposure to SARS-CoV -2 (event) Not sure [employer] Work Phone: Discharge Instructions * Instructions* Morena Wynn, INSURANCE UNDERWRITER - MEDICARE INSURANCE SPECIALIST - 07/06/2019 Rest, ice/heat, take medications as prescribed. In the medical field, there is always a level of diagnostic uncertainty, even if this uncertainty is low. For this reason, it is important to immediately return to the emergency department if you have any new symptoms, worsening symptoms, change of symptoms, or if you have any other concerns. We would be happy to re- evaluate you. Otherwise, please take your medications as prescribed and follow-upas recommended. * Attachments The following attachments cannot be sent through Care Everywhere. * Back: Strain (Jamaican) * Strain or Sprain (Jamaican) documented in this encounter* Attachments The following attachments cannot be sent through Care Everywhere. * Shoulder Pain (Jamaican) * Rotator Cuff: Exercises (Jamaican) documented in this encounter Assessments Diagnosis Fall, initial encounter- Primary Strain of lumbar region, initial encounter Strain of left hip, initial encounter Diagnosis Injury of left shoulder, initial encounter- Primary Acute pain of left shoulder Reason for Referral Status Reason Specialty Diagnoses / Procedures Referred By Contact Referred To Contact Open Specialty Services Required Orthopedic Surgery: Hand Surgery / Orthopedic Surgery Diagnoses Injury of left shoulder, initial encounter Hayes Gtz, [facility] [address] [place] [address] [place] [place] [address] [place] [address] [address] [place] [address] Scheduling Instructions [facility] Orthopedics Hand/Wrist Upper Extremities - Green [address] [place], [place] [address] , [address] [place] [address] Summary Purpose Family History No Family History Records Found Advance Directives No Advanced Directives Records Found Additional Source Comments Reason for Visit (unrecogniz ed section and content) Reason Comments Fall Fell of 6-8 foot lad opal today. Pain in the left ankle, knee and hip Reason Comments Shoulder Pain left Ordered Prescriptions (unrec ognized section and content) Prescription Sig Dispensed Refills Start Date End Da te HYDROcodone-acetaminophen (NORCO) 5-325 MG per tabletIndications:Injury of left shoulder, initial encounter,Acute pain of left shoulder Take 1 tablet by mouth every 8 hours as needed for Pain for up to 3 days. 9 tablet 0 10/04/2020 10/07/2020 (unrecognized sect ion and content) No Status Records Found INFORMATION SOURCE (unrecogn ized section and content) DATE CREATED AUTHOR 10/08/2020 [facility] FOR RECORDS PERTAINING TO PATIENTS WHO ARE OR HAVE BEEN ENROLLED IN A CHEMICAL DEPENDENCY/SUBSTANCEABUSE PROGRAM, SOME INFORMATION MAY BE OMITTED. This clinical summary was aggregated from multiple sources. Caution should be exercised in using it in the provision of clinical care. This summary normalizes information from multiple sources, and as a consequence, information in this document may materially change the coding, format and clinical context of patient data. In addition, data may be omitted in some cases. CLINICAL DECISIONS SHOULD BE BASED ON THE PRIMARY CLINICAL RECORDS. [facility]. provides no warranty or guarantee of the accuracy or completeness of information in this document.
[2024-05-18] MEDS: Lactated Ringers 1,000 ML 15 ML IV (07:37)
--- NOTE | 2024-05-18 08:00 | COLBX_PTH ---
PATHOLOGY RESULTS PATIENT: ADILSON BARNEY LOC: EN U#:[id number] AGE/SX: 48/M ROOM: RE05/18/[address]: Dr. Antonio Ware MD : 1975 BED: DIS: 05/18/2024 SPEC #: [id number] RECD: 05/18/24 09:16 STATUS: TIGIST REAna Maria #: [id number] DURGA: 05/18/24 08:[address]: Antonio Ware DEPT: SURGICAL PATHOLOGY RECD BY: Venita Batista ENTERED: 05/18/24 10:15 SP TYPE: COLON BX OTHR DR: Dr. Serenity Willett MD Tissues: Descending colon Procedures: Surgery Specimen Level IV HEADER OPERATION: Colonoscopy with polypectomy PRE-OP DIAGNOSIS: Encounter for screening for malignant neoplasm of colon TISSUE SUBMITTED: Descending colon polyp MICROSCOPIC DIAGNOSIS Descending colon polyp, polypectomy: Tubular adenoma. Fragments of fecal material. SJ.mr 05/19/2024 MICROSCOPIC DESCRIPTION Slides are reviewed. GROSS DESCRIPTION Received in fixative is one container labeled with the patient's name and designated Descending colon polyp. The specimen consists of a piece of smalls-pink polyp measuring 0.5 x 0.5 x 0.3cm. Also present in the container are multiple fragments of smalls soft tissue measuring in aggregate 0.8 x 0.3 x 0.1cm. The entire specimen is submitted in one cassette. 05/18/2024 TC:1 CPT:93239
--- NOTE | 2024-05-18 08:11 | HP.PCM_ITS ---
HPI - General HPI Narrative ADILSON BARNEY, is a 48 M who presents for screening colonoscopy. Patient has never had a colonoscopy in the past. He denies abdominal pain or blood in the stool. Denies family history of colon cancer. [facility] Medical History Wears glasses Thyroid disease High cholesterol History of IBS Non-smoker History of deviated nasal septum Hyperlipidemia Acute sinusitis, unspecified COVID Home Medications ?Medication ?Instructions ?Recorded ?Last Taken ?Type fluticasone propionate 50 1 spray intranasal DAILY 04/08/21 Unknown History mcg/actuation nasal spray,suspension cetirizine 10 mg capsule (Zyrtec) 10 mg PO DAILY 12/23/22 Unknown History atorvastatin 20 mg tablet 20 mg PO DAILY #90 tabs 03/01/24 Unknown Rx levothyroxine 88 mcg tablet 88 mcg PO DAILY #90 tabs 03/01/24 05/18/24 04:00 Rx Allergy/AdvReac Type Severity Reaction Status Date / Time Environmental Allergies: Allergy Mild Other Verified 05/18/24 07:29 Uncoded Family History Father Hypertension Parkinson disease Mother Hypertension Thyroid disorder Sister Seizures Grandfather Thyroid disorder Autoimmune disorder Surgical History History of myringotomy History of tonsillectomy Social History household members: spouse current occupational status: employed current occupation: [employer] Smoking Status: Never smoker alcohol intake: never substance use type: does not use Past Medical/Surgical History Planned Operation Planned Operative Procedure(s): COLONOSCOPY Previous Hospitalizations/Surgeries HX Hospitalizations: No Any Problems With Anesthesia: Yes (WOKE UP DURING PROCEDURE WITH WISDOM TEETH EXTRACTION) You/Your Family Experience Fever (Hyperthermia) With Anes: No Cholinesterase deficiency: No Cardiovascular Hx Hypertension: No Respiratory Hx Sleep Apnea: No Hx Respiratory Tract Infection/Cold (presently): No Do You Snore Loudly (louder than talking or can be heard): Yes Do You Often Feel Tired/ Fatigued/ Sleepy Dring Daytime?: No Has Anyone Observed You Stop Breathing During Sleep?: No Result (for STOP score): Negative Smoking Status: Never smoker Neurological Does patient have nerve stimulator: No Miscellaneous Recent Exposure to Contagious Disease: No Allergies Environmental Allergies: Uncoded Allergy (Mild, Verified 05/18/24 07:29) Other dust/grass Discharge Is Pt Admitted From a Long-Term, or a Long Term: No Who Could Help: After D/C, Where Do you Plan to Go: Return Home Vital Signs Vital Signs Vital Signs: 05/18/24 07:30 Temperature 97 F L Temperature Source Temporal Pulse Rate 63 Respiratory Rate 16 Blood Pressure 126/90 H Blood Pressure Mean 102 Blood Pressure Source Monitor Blood Pressure Position Sitting Blood Pressure Location Right Arm Pulse Ox 100 Oxygen Delivery Method Room Air Weight Weight: 286 lb Body Mass Index (BMI) 34.8 Physical Exam Const alert and oriented x3 HEENT normocephalic Eyes PERRL Resp normal respiratory effort and normal air movement Cardio regular rate and regular rhythm GI soft to palpation, non-tender and non-distended Extremity normal to inspection Assessment & Plan Assessment/Plan (1) Encounter for screening for malignant neoplasm of colon: PLAN: I explained endoscopy in detail to the patient. I explained the risks including but not limited to stroke or heart attack with anesthesia, perforation of the GI tract, bleeding, infection. I explained that any of these could necessitate further emergency surgery. The patient understands and all questions were answered sufficiently. The patient wishes to proceed with procedure. Antonio Ware MD Pager: [facility] [address] [place] [address], [address] [place] [address] Office: Surgery Risks - Colonoscopy Risks Include but are not Limited To: Risks include but are not limited to: Bleeding, perforation requiring further surgery, inability to complete colonoscopy requiring barium enema.
[2024-05-18 08:45] VITALS: BP 126/90; BP 98/69; PULSE 60; RESP 16; TEMP 36.1; O2SAT 95
--- NOTE | 2024-05-18 08:46 | OP.CCLET_ITS ---
05/18/2024 Serenity Willett [facility] [address] [place] [address] Re : Colonoscopy procedure for Nicolás Pan Dear Dr. Willett This procedure was performed on April. My impressions and recommendations are as follows: Impressions : - The entire examined colon is normal on direct and retroflexion views. - One medium polyp in the descending colon, removed with a hot snare. Resected and retrieved. Recommendations : - Discharge patient to home. - Resume previous diet. - Continue present medications. - Await pathology results. - Repeat colonoscopy in 5 years for surveillance. My findings are described in the full procedure note, which is enclosed. If I can be of further assistance, please feel free to contact me at Doctor phone number(s): , Work: . Sincerely, Antonio Ware MD 05/18/2024 8:45:29 AM This report has been signed electronically.
--- NOTE | 2024-05-18 08:46 | OP.COLON_ITS ---
Patient Name: Nicolás Pan Procedure Date: 05/18/2024 8:17 AM Date of : 1975 Age: 48 Procedure: Colonoscopy Indications: Screening for colorectal malignant neoplasm Providers: Antonio Ware MD Medicines: Propofol per Anesthesia Patient Profile: This is a 48 year old male. Refer to note in patient chart for documentation of history and physical. Last Colonoscopy: none. The patient's first colonoscopy is today. Complications: No immediate complications. Estimated blood loss: Minimal. Procedure: Pre-Anesthesia Assessment: - Prior to the procedure, a History and Physical was performed, and patient medications and allergies were reviewed. The patient's tolerance of previous anesthesia was also reviewed. The risks and benefits of the procedure and the sedation options and risks were discussed with the patient. All questions were answered, and informed consent was obtained. Prior Anticoagulants: The patient has taken no anticoagulant or antiplatelet agents. After reviewing the risks and benefits, the patient was deemed in satisfactory condition to undergo the procedure. After I obtained informed consent, the scope was passed under direct vision. Throughout the procedure, the patient's blood pressure, pulse, and oxygen saturations were monitored continuously. The pediatric colonoscope was introduced through the anus and advanced to the cecum, identified by appendiceal orifice and ileocecal valve. The colonoscopy was performed without difficulty. The patient tolerated the procedure well. The quality of the bowel preparation was good. The ileocecal valve, appendiceal orifice, and rectum were photographed. Scope In: 8:24:09 AM Scope Withdrawal Time 0 hours 8 minutes 36 seconds Scope Out: 8:41:52 AM Total Procedure Duration Time 0 hours 17 minutes 43 seconds Findings: The entire examined colon appeared normal on direct and retroflexion views. A medium polyp was found in the descending colon. The polyp was removed with a hot snare. Resection and retrieval were complete. Impression: - The entire examined colon is normal on direct and retroflexion views. - One medium polyp in the descending colon, removed with a hot snare. Resected and retrieved. Recommendation: - Discharge patient to home. - Resume previous diet. - Continue present medications. - Await pathology results. - Repeat colonoscopy in 5 years for surveillance. Procedure Code(s): --- Professional --- 82641, Colonoscopy, flexible; with removal of tumor(s), polyp(s), or other lesion(s) by snare technique Diagnosis Code(s): --- Professional --- Z12.11, Encounter for screening for malignant neoplasm of colon D12.4, Benign neoplasm of descending colon CPT copyright 2021 [employer]. All rights reserved. The codes documented in this report are preliminary and upon see wheeler review may be revised to meet current compliance requirements. Antonio Ware MD 05/18/2024 8:45:29 AM This report has been signed electronically. Number of Addenda: 0 Note Initiated On: 05/18/2024 8:17 AM
--- NOTE | 2024-05-18 08:49 | PCM.POST.ANE ---
Anesthesia: Postop Eval I Current Vital Signs Temperature: 97 F Pulse Rate: 60 Blood Pressure: 98/69 Respiratory Rate: 16 Pulse Ox: 97 Oxygen Delivery Method: Room Air Assessment Airway patent: Yes Spontaneous unlabored respirations: Yes Mental status: Asleep nausea: No Vomiting: No Anesthesia Complication: No Fluid Hydration Crystalloid volume administer (ml): 600 Total IV fluid infused: 600 Progress Note Anesthesia document: Postop Eval 1 completed: Yes
[2024-05-18 08:50] VITALS: BP 104/61; BP 126/90; BP 98/69; PULSE 59; PULSE 60; RESP 16; RESP 18; TEMP 36.1; O2SAT 95; O2SAT 97
[2024-05-18 08:55] VITALS: BP 126/90; BP 99/68; PULSE 54; RESP 16; O2SAT 96
[2024-05-18 09:00] VITALS: BP 105/81; BP 126/90; PULSE 57; RESP 16; TEMP 36.3; O2SAT 95
[2024-05-18 09:16] VITALS: BP 126/90
--- NOTE | 2024-05-18 09:19 | PCM.POSTANE2 ---
Anesthesia Postop Eval I Sum Postop Eval Completion status Anesthesia document: Postop Eval 1 completed: Yes Anesthesia Postop Eval I Summary Anesthesia Postop Eval I Summary: Anesthesia Postop Eval I: Assessment Summary Airway patent Yes 05/18/24 08:50 [email or web address] Spontaneous unlabored Yes 05/18/24 08:50 [email or web address] respirations Mental status Asleep 05/18/24 08:50 [email or web address] nausea No 05/18/24 08:50 [email or web address] Vomiting No 05/18/24 08:50 [email or web address] Anesthesia Postop Eval I: Fluid Summary Crystalloid volume administer 600 05/18/24 08:50 [email or web address] (ml) Colloids volume administered ( ml) Blood Product volume administered (ml) Total IV fluid infused 600 05/18/24 08:50 [email or web address] Anesthesia Postop Eval I: Summary Notes Anesthesia Complication No 05/18/24 08:50 [email or web address] Anesthesia Complication Comment: Post-operative progress note Anesthesia: Postop Eval II Evaluation Mental status: Awake Pain Level: 0 nausea: No Vomiting: No
== END 2024-05-18 09:41 | disposition home or self-care (01) ==
LOC: EN 07:15 → AC 07:17
PROVIDERS: PCP Internal Medicine; Referring Provider Internal Medicine; Visit Provider Surgery
PROC: 0DJD8ZZ Inspection of Lower Intestinal Tract, Via Natural or Artificial Opening Endoscopic (ICD-10-PCS; CPT 45378; principal; 2024-05-18 07:55)
DX: Z12.11 Encounter for screening for malignant neoplasm of colon (principal); E78.5 Hyperlipidemia, unspecified; D12.4 Benign neoplasm of descending colon; Z86.16 Personal history of COVID-19
CPT/HCPCS: 45385; 88305; J7120; J2405

== ENCOUNTER → 2024-07-27 | Outpatient (CLI) | payer MEDICAID, SELFPAY ==
[2024-07-27 12:35] LABS: AST(SGOT) 22 U/L (15-37); Alanine Aminotransfer ALT/SGPT 50 U/L (16-61); Albumin, Serum 3.8 g/dL (3.2-5.0); Alkaline Phosphatase 92 U/L (45-117); Anion Gap 4 (5-15); BUN 10 mg/dL (7-18); BUN/Creat Ratio 9.8 RATIO (10-20); Calcium,Total 9.5 mg/dL (8.5-10.1); Chloride 108 mmol/L (98-107); Cholesterol 167 mg/dL (200); Creatinine, Serum 1.02 mg/dL (0.70-1.30); EST Glomerular Filtration Rate 83 mL/min (>60); Est Glom Filt Rate - Afr Amer 100 mL/min (>60); Free T3 2.7 pg/mL (2.18-3.98); Globulin 3.8 g/dL (2.2-4.2); Glucose 99 mg/dL (74-106); High Density Lipoprotein 28 mg/dL; Potassium 4.1 mmol/L (3.5-5.1); Protein, Total 7.6 g/dL (6.4-8.2); Sodium Level 139 mmol/L (136-145); Triglycerides 221 mg/dL; Very Low Density Lipoprotein 44 mg/dL (5-40)
[2024-07-27 12:43] LABS: Hemoglobin A1c 5.6 % (3.8-5.6)
[2024-07-27 13:15] LABS: Vitamin D,25 Hydroxy 18.6 ng/mL
== END | disposition home or self-care (01) ==
PROVIDERS: PCP Internal Medicine; Referring Provider Internal Medicine; Visit Provider Internal Medicine
DX: E78.6 Lipoprotein deficiency (principal); E03.9 Hypothyroidism, unspecified; E78.5 Hyperlipidemia, unspecified; Z13.220 Encounter for screening for lipoid disorders; R73.9 Hyperglycemia, unspecified; E55.9 Vitamin D deficiency, unspecified
CPT/HCPCS: 36415; 80053; 80061; 82306; 83036; 84439; 84443; 84481

== ENCOUNTER → 2024-08-08 | Outpatient (CLI) | payer MEDICAID, SELFPAY ==
[2024-08-08 12:31] LABS: Absolute Lymphocyte Count 2.55 X10^3/uL (0.83-4.51); Absolute Neutrophil Count 3.9 X10^3/uL (2.0-7.7); Basophil# 0.06 X10^3/uL; Basophil% 0.8 % (0-1); Eosinophil# 0.23 X10^3/uL; Eosinophils% 3.2 % (0-5); Hemoglobin 14.6 g/dL (13.0-16.5); Lymphocyte # 2.55 X10^3/ul (0.83-4.51); Lymphocyte % 35.1 % (19-41); Mean Corp Hgb Conc 33.2 g/dL (32-36); Mean Corpuscular Hgb 28.2 pg (27.0-32.0); Mean Corpuscular Volume 84.9 fL (80-94); Mean Platelet Vol. 11.8 fl (6.2-12.0); Monocyte# 0.46 X10^3/uL; Monocyte% 6.3 % (0-10); NRBC Flagged by Analyzer 0 % (0-5); Neutrophil # 3.94 X10^3/uL (2.7-7.7); Neutrophil % 54.3 % (47-70); POSITIVE COUNT YES; RBC Distribution Width CV 12.8 % (11.6-14.6); RBC Distribution Width SD 39.2 fl (35.1-43.9); Red Blood Count 5.18 M/mm3 (4.6-6.2); White Blood Count 7.3 K/mm3 (4.4-11.0)
[2024-08-08 12:54] LABS: Differential Indicated SCAN CRITERIA MET
[2024-08-08 12:55] LABS: Platelet Estimate MOD DEC (ADEQ)
[2024-08-08 13:20] LABS: ALB/GLOB Ratio 1.1 RATIO (0.9-2.4); AST(SGOT) 26 U/L (15-37); Alanine Aminotransfer ALT/SGPT 64 U/L (16-61); Albumin, Serum 3.7 g/dL (3.2-5.0); Alkaline Phosphatase 84 U/L (45-117); Anion Gap 6 (5-15); BUN 11 mg/dL (7-18); Calcium,Total 8.9 mg/dL (8.5-10.1); Chloride 110 mmol/L (98-107); Cholesterol 160 mg/dL (200); EST Glomerular Filtration Rate 76 mL/min (>60); Est Glom Filt Rate - Afr Amer 92 mL/min (>60); Free T3 2.7 pg/mL (2.18-3.98); Globulin 3.5 g/dL (2.2-4.2); Glucose 135 mg/dL (74-106); High Density Lipoprotein 32 mg/dL; Potassium 3.8 mmol/L (3.5-5.1); Protein, Total 7.2 g/dL (6.4-8.2); Sodium Level 139 mmol/L (136-145); T4 Free Direct 1.06 ng/dL (0.76-1.46); Triglycerides 184 mg/dL; Very Low Density Lipoprotein 37 mg/dL (5-40)
[2024-08-08 14:27] LABS: Hemoglobin A1c 5.6 % (3.8-5.6)
[2024-08-10 08:26] LABS: Vitamin B12 373 pg/mL (211-911); Vitamin D,25 Hydroxy 11.8 ng/mL
[2024-08-12 15:07] LABS: Testosterone, % Free 3.24 % (1.50-4.20); Testosterone, Free 11.02 ng/dL (5.00-21.00); Testosterone, Total 340 ng/dL (264-916)
== END | disposition home or self-care (01) ==
LOC: BIMLAB 11:23
PROVIDERS: PCP Internal Medicine; Referring Provider Internal Medicine; Visit Provider Internal Medicine
DX: N52.9 Male erectile dysfunction, unspecified (principal); Z13.220 Encounter for screening for lipoid disorders; E03.9 Hypothyroidism, unspecified; E78.5 Hyperlipidemia, unspecified; R79.89 Other specified abnormal findings of blood chemistry; E55.9 Vitamin D deficiency, unspecified; E53.8 Deficiency of other specified B group vitamins
CPT/HCPCS: 36415; 80053; 80061; 82306; 82607; 83036; 84402; 84403; 84439; 84443; 84481; 85025

== ENCOUNTER → 2025-03-01 | Outpatient (CLI) | payer MEDICAID, SELFPAY ==
[2025-03-01 12:08] LABS: Hematocrit 42.1 % (40-54); Hemoglobin 14.5 g/dL (13.0-16.5); Immature Granulocytes Count 0.050 X10^3/uL (0.0-0.0); Mean Corp Hgb Conc 34.4 g/dL (32-36); Mean Corpuscular Volume 84.5 fL (80-94); Mean Platelet Vol. 11.7 fl (6.2-12.0); NRBC Flagged by Analyzer 0 % (0-5); POSITIVE COUNT YES; RBC Distribution Width CV 12.6 % (11.6-14.6); RBC Distribution Width SD 38.3 fl (35.1-43.9); Red Blood Count 4.98 M/mm3 (4.6-6.2); White Blood Count 7.5 K/mm3 (4.4-11.0)
[2025-03-01 12:55] LABS: AST(SGOT) 30 U/L (<=37); Alanine Aminotransfer ALT/SGPT 39 U/L (<=46); Albumin, Serum 4.2 g/dL (3.5-5.0); Alkaline Phosphatase 82 U/L (40-129); Anion Gap 12 (5-15); BUN 14 mg/dL (4-19); BUN/Creat Ratio 13.1 RATIO (10-20); Calcium,Total 9.1 mg/dL (7.6-11.0); Carbon Dioxide 21.2 mmol/L (21.0-32.0); Chloride 106 mmol/L (98-108); Cholesterol 167 mg/dL (<=200); Free T3 3.1 pg/mL (2.18-3.98); Globulin 3.1 g/dL (2.2-4.2); Glucose 103 mg/dL (70-99); Low Density Lipoprotein Calc. 103 mg/dL; PSA,Total - Annual Screen 0.43 ng/mL (0.02-4.00); Potassium 3.9 mmol/L (3.3-5.1); Triglycerides 175 mg/dL; Very Low Density Lipoprotein 35 mg/dL (5-40); Vitamin D,25 Hydroxy 31.2 ng/mL (30-100); cholesterol:hdl ratio screen 5.76
[2025-03-01 13:00] LABS: Differential Indicated SCAN CRITERIA MET
[2025-03-01 13:01] LABS: Differential Comment SCANNED
== END | disposition home or self-care (01) ==
LOC: BIMLAB 10:14
PROVIDERS: PCP Internal Medicine; Visit Provider Internal Medicine
DX: E03.9 Hypothyroidism, unspecified (principal); E78.6 Lipoprotein deficiency; E78.2 Mixed hyperlipidemia; Z12.5 Encounter for screening for malignant neoplasm of prostate; Z13.220 Encounter for screening for lipoid disorders; R73.9 Hyperglycemia, unspecified
CPT/HCPCS: 84153; 36415; 80053; 80061; 82306; 83036; 84439; 84443; 84481; 85025; G0103